=== PATIENT | male | born 1995 | race African-American/Black ===

== ENCOUNTER 2023-03-23 16:48 | Inpatient (IN) | payer OTHER ==
[2023-03-23 17:55] VITALS: BMI 25.7
[2023-03-23] MEDS ORDERED: ACETAMINOPHEN 325 MG TABLET (FP) PO PRN (21:28)
[2023-03-23] MEDS ORDERED: IBUPROFEN 400 MG TABLET (FP) PO PRN (21:28)
[2023-03-23] MEDS ORDERED: BISMUTH SUBSALICYLATE 524 MG/30 ML PO PRN (21:28)
[2023-03-23] MEDS ORDERED: BENZOCAINE/MENTHOL (CHLORASEPTIC ) LOZENGE MM PRN (21:28)
[2023-03-23] MEDS ORDERED: guaiFENesin 600 MG TABLET.ER (FP) PO PRN (21:28)
[2023-03-23] MEDS ORDERED: ONDANSETRON *ODT* 4 MG TABLET SL PRN (21:28)
[2023-03-23] MEDS ORDERED: BENZONATATE 200 MG CAPSULE PO PRN (21:28)
[2023-03-23] MEDS ORDERED: MAGNESIUM HYDROX 2400MG/30ML ORAL SUSPENSION 30 ML CUP PO PRN (21:28)
[2023-03-23] MEDS ORDERED: MAG HYDROX/AL HYDROX/SIMETH 30 ML UNIT-DOSE CUP PO PRN (21:28)
[2023-03-23] MEDS ORDERED: NALOXONE HCL (KLOXXADO) 8 MG SPRAY NS PRN (21:28)
[2023-03-23] MEDS ORDERED: NICOTINE POLACRILEX 2 MG GUM BUC PRN (21:28)
[2023-03-23] MEDS ORDERED: NALOXONE HCL 0.4 MG/ML VIAL IM PRN (21:28)
[2023-03-23] MEDS ORDERED: hydrOXYzine PAMOATE 25 MG CAPSULE (FP) PO PRN (21:28)
[2023-03-23] MEDS ORDERED: LOPERAMIDE HCL 2 MG CAPSULE PO PRN (21:28)
[2023-03-23] MEDS ORDERED: POLYETHYLENE GLYCOL (HEALTHYLAX) 3350 17 GM PACKET PO PRN (21:28)
[2023-03-23] MEDS ORDERED: IBUPROFEN 600 MG TABLET (FP) PO PRN (21:28)
[2023-03-23] MEDS ORDERED: MELATONIN 5 MG TABLETS ONE (22:30)
[2023-03-23] MEDS ORDERED: IBUPROFEN 600 MG TABLET (FP) PO ONE (22:30)
[2023-03-23] MEDS ORDERED: METHOCARBAMOL 500 MG TABLET ONE (22:30)
[2023-03-23] MEDS: METHOCARBAMOL 500 MG TABLET PO PRN (22:33)
[2023-03-23] MEDS: THIAMINE HCL 100 MG TABLET (FP) PO SCH (22:33)
[2023-03-23] MEDS: MELATONIN 5 MG TABLETS PO SCH (22:33)
[2023-03-24] MEDS: PRENATAL VITAMINS W/ FOLIC ACID TABLET (FP) PO SCH (10:08)
[2023-03-24] MEDS: NICOTINE 14 MG/24 HOURS TOPICAL PATCH TD SCH (10:09)
[2023-03-24 10:42] LABS: CHLORIDE 100 mmol/L (98-107); POTASSIUM 3.9 mmol/L (3.5-5.1); SODIUM 136 mmol/L (136-145)
[2023-03-24 10:53] LABS: ANION GAP 6 mmol/L (4-13); CALCIUM 9.3 mg/dL (8.5-10.1); CO2 30 mmol/L (21-32); GLUCOSE,RANDOM 94 mg/dL (74-106)
[2023-03-24 10:54] LABS: ALBUMIN 3.1 g/dl (3.4-5.0); CREATININE 0.8 mg/dL (0.55-1.3); HEMATOCRIT 39.8 % (35.4-49); HEMOGLOBIN 13.6 GM/dL (11.7-16.9); MCH 34.4 pg (25.7-33.7); MCHC 34.1 g/dl (32.0-35.9); MEAN CELL VOLUME 100.9 fl (80-96); MEAN PLT VOLUME 8.9 fl (7.5-11.1); PLATELET COUNT 150 10^3/uL (134-434); RBC 3.94 M/mm3 (4.00-5.60); RDW 13.3 % (11.9-15.9); SGOT/AST 60 U/L (15-37); SGPT/ALT 47 U/L (13-61); WHITE BLOOD COUNT 2.2 K/mm3 (4.0-10.0)
[2023-03-24 10:55] LABS: TOT PROT 6.7 g/dl (6.4-8.2)
[2023-03-24 10:56] LABS: BILIRUBIN,TOTAL 0.8 mg/dL (0.2-1)
[2023-03-24 11:01] LABS: ALK PHOS 91 U/L (45-117)
[2023-03-24] MEDS: THIAMINE HCL 100 MG TABLET (FP) PO SCH (22:16)
[2023-03-24] MEDS: METHOCARBAMOL 500 MG TABLET PO PRN (22:16)
[2023-03-24] MEDS: MELATONIN 5 MG TABLETS PO SCH (22:16)
[2023-03-25 09:03] VITALS: BP 126/80; PULSE 83; RESP 18; TEMP 97.1
[2023-03-25] MEDS: PRENATAL VITAMINS W/ FOLIC ACID TABLET (FP) PO SCH (10:09)
[2023-03-25] MEDS: NICOTINE 14 MG/24 HOURS TOPICAL PATCH TD SCH (10:09)
== END 2023-03-25 11:34 | disposition home or self-care (01) | DRG 775 ==
LOC: YASAS 16:48 → Y6N 22:23
PROVIDERS: ADMIT Allergy & Immunology; ATTEND Surgery
PROC: HZ2ZZZZ Detoxification Services for Substance Abuse Treatment (ICD-10-PCS; principal; 2023-03-23)
DX: F10.20 Alcohol dependence, uncomplicated (principal); F12.20 Cannabis dependence, uncomplicated; F17.210 Nicotine dependence, cigarettes, uncomplicated; F29 Unspecified psychosis not due to a substance or known physiological condition; Z28.310 Unvaccinated for COVID-19; Z28.9 Immunization not carried out for unspecified reason
CPT/HCPCS: 36415; 80053; 80307; 85027; 86780; 87635; 87811; 93005; 93010

== ENCOUNTER 2024-09-18 12:59 | Inpatient (IN) | payer OTHER ==
[2024-09-18 13:27] VITALS: BMI 25.0
[2024-09-18] MEDS ORDERED: guaiFENesin 600 MG TABLET.ER (FP) PO PRN (14:05)
[2024-09-18] MEDS ORDERED: POLYETHYLENE GLYCOL (HEALTHYLAX) 3350 17 GM PACKET PO PRN (14:05)
[2024-09-18] MEDS ORDERED: DICYCLOMINE HCL 10 MG CAPSULE PO PRN (14:05)
[2024-09-18] MEDS ORDERED: NALOXONE (NARCAN) HCL 4 MG/0.1 ML SPRAY NS PRN (14:05)
[2024-09-18] MEDS ORDERED: MAG HYDROX/AL HYDROX/SIMETH 30 ML UNIT-DOSE CUP PO PRN (14:05)
[2024-09-18] MEDS ORDERED: ONDANSETRON *ODT* 4 MG TABLET SL PRN (14:05)
[2024-09-18] MEDS ORDERED: NICOTINE POLACRILEX 2 MG LOZENGE BC PRN (14:05)
[2024-09-18] MEDS ORDERED: BENZONATATE 200 MG CAPSULE PO PRN (14:05)
[2024-09-18] MEDS ORDERED: MAGNESIUM HYDROX 2400MG/30ML ORAL SUSPENSION 30 ML CUP PO PRN (14:05)
[2024-09-18] MEDS ORDERED: IBUPROFEN 400 MG TABLET (FP) PO PRN (14:05)
[2024-09-18] MEDS ORDERED: BISMUTH SUBSALICYLATE 262 MG/15 ML BTL PO PRN (14:05)
[2024-09-18] MEDS ORDERED: BENZOCAINE/MENTHOL (CHLORASEPTIC ) LOZENGE MM PRN (14:05)
[2024-09-18] MEDS ORDERED: ACETAMINOPHEN 325 MG TABLET (FP) PO PRN (14:05)
[2024-09-18] MEDS ORDERED: NICOTINE POLACRILEX 2 MG GUM BUC PRN (14:05)
[2024-09-18] MEDS ORDERED: LOPERAMIDE HCL 2 MG CAPSULE PO PRN (14:05)
[2024-09-18] MEDS ORDERED: IBUPROFEN 600 MG TABLET (FP) PO PRN (14:05)
[2024-09-18] MEDS: levETIRAcetam 500 MG TABLET (FP) PO SCH (22:16)
[2024-09-18] MEDS: THIAMINE 100 MG TABLET PO SCH (22:17)
[2024-09-18] MEDS: MELATONIN 5 MG TABLETS PO SCH (22:17)
[2024-09-19] MEDS: PRENATAL VITAMINS W/ FOLIC ACID TABLET (FP) PO SCH (10:26)
[2024-09-19 11:02] LABS: HEMATOCRIT 37.5 % (40.1-51.0); HEMOGLOBIN 12.6 g/dL (13.7-17.5); MCHC 33.6 g/dl (32.3-36.5); MEAN CELL VOLUME 96.4 fl (79.0-92.2); MEAN PLT VOLUME 11.2 fl (9.4-12.4); PLATELET COUNT 255 x10^3/uL (163-337); RDW 12.8 % (11.9-15.3)
[2024-09-19 11:06] LABS: POTASSIUM 4.1 mmol/L (3.5-5.1)
[2024-09-19 11:30] LABS: ALBUMIN 3.5 g/dl (3.4-5.0); BLOOD UREA NITROGEN 14.7 mg/dL (7-18); CALCIUM 9.4 mg/dL (8.5-10.1)
[2024-09-19 11:32] LABS: BILIRUBIN,TOTAL 0.3 mg/dL (0.2-1)
[2024-09-19 11:33] LABS: CREATININE 0.9 mg/dL (0.55-1.3)
[2024-09-19 12:01] LABS: TOT PROT 6.8 g/dl (6.4-8.2)
[2024-09-19] MEDS: METHOCARBAMOL 500 MG TABLET PO PRN (22:24)
[2024-09-19] MEDS: hydrOXYzine PAMOATE 25 MG CAPSULE (FP) PO PRN (22:24)
[2024-09-20 09:23] VITALS: BP 123/82; PULSE 100; RESP 17; TEMP 97.1
== END 2024-09-20 09:30 | disposition home or self-care (01) | DRG 775 ==
LOC: YASAS 12:59 → Y6N 14:24
PROVIDERS: ADMIT Allergy & Immunology; ATTEND Allergy & Immunology
PROC: HZ2ZZZZ Detoxification Services for Substance Abuse Treatment (ICD-10-PCS; principal; 2024-09-18)
DX: F10.230 Alcohol dependence with withdrawal, uncomplicated (principal); F12.20 Cannabis dependence, uncomplicated; F17.210 Nicotine dependence, cigarettes, uncomplicated; F29 Unspecified psychosis not due to a substance or known physiological condition; F19.282 Other psychoactive substance dependence with psychoactive substance-induced sleep disorder; G47.00 Insomnia, unspecified; M54.50 Low back pain, unspecified; G89.29 Other chronic pain; Z59.02 Unsheltered homelessness
CPT/HCPCS: 36415; 80053; 80307; 85027; 86780; 93005; 93010